=== PATIENT | male | born 1955 | race African-American/Black ===

== ENCOUNTER 2022-02-26 10:07 | Emergency (ER) | payer MEDICARE, OTHER, SELFPAY ==
[2022-02-26 10:56] VITALS: BP 136/78; PULSE 104; RESP 18; TEMP 37.4; O2SAT 100
--- NOTE | 2022-02-26 11:07 | ED.MALEGU ---
HPI - Male Genitourinary General Chief complaint: Urogenital-Male Stated complaint: lower abdomen pain,blood in urine Time Seen by Provider: 02/26/22 11:07 Source: patient Mode of arrival: ambulatory Limitations: no limitations History of Present Illness HPI Narrative: 66-year-old male presents with complaint of malodorous urine for several weeks. States that his told him his urine was smelling and that he needed to increase his water. Reports that 5 days ago he began to have dysuria, suprapubic pain. He went to the [facility] and had his urine checked and was told it was normal. States he checked his online profile today and noticed that antibiotic was called in for him. He was unaware that this antibiotic was prescribed. He states that it is coming from the [facility] and has not yet been mailed to him. Afebrile. No nausea vomiting diarrhea. All systems reviewed and negative except as noted above. Related Data Home Medications Medication Instructions Recorded Confirmed allopurinol 100 mg tablet 100 mg PO DAILY 02/26/22 02/26/22 aspirin 81 mg chewable tablet 81 mg PO DAILY 02/26/22 02/26/22 colchicine 0.6 mg tablet 0.6 mg PO DAILY 02/26/22 02/26/22 lisinopril 20 mg tablet 20 mg PO DAILY 02/26/22 02/26/22 meloxicam 7.5 mg tablet 7.5 mg PO DAILY 02/26/22 02/26/22 omeprazole 20 mg delayed 40 mg PO DAILY 02/26/22 02/26/22 release,disintegrating tablet sildenafil 100 mg tablet 100 mg PO DAILY PRN Errection 02/26/22 02/26/22 simvastatin 40 mg tablet 40 mg PO DAILY 02/26/22 02/26/22 tamsulosin 0.4 mg capsule 0.4 mg PO DAILY 02/26/22 02/26/22 Allergies Allergy/AdvReac Type Severity Reaction Status Date / Time No Known Allergies Allergy Verified 02/26/22 10:47 Review of Systems Review of Systems: CONSTITUTIONAL: Denies fever, chills, or sweats. EYES: Denies visual changes, redness, or discharge. ENT: Denies rhinorrhea, congestion, sore throat, or otalgia. CARDIOVASCULAR: Denies chest pain, palpitations, or edema. RESPIRATORY: Denies cough or dyspnea. GASTROINTESTINAL: Denies abdominal pain, nausea, vomiting, or diarrhea. GENITOURINARY: Reports dysuria, frequency. Denies hematuria. SKIN: Denies rash or itching. MUSCULOSKELETAL: Denies back pain, joint pain, or myalgia. NEUROLOGIC: Denies headache, numbness, or weakness. PSYCHIATRIC: Denies anxiety or depression. All other systems reviewed are negative, except as documented in HPI. PMFSH Comments At time of signature, agree with nursing past medical, surgical, social and family history. There is no relevant family history pertinent to the presenting complaint. Exam Narrative: GENERAL: This is a well-nourished, well-developed patient, in no apparent distress. HEAD: normocephalic, atraumatic. EYES: PERRL. Sclera clear/white. Vision is grossly intact. EARS: External ears normal NOSE: External nose normal NECK: Neck supple, non-tender without lymphadenopathy, masses or thyromegaly. CARDIOVASCULAR: Regular rate and rhythm without murmurs, gallops, or rubs. RESPIRATORY: Clear to auscultation. Breath sounds equal bilaterally. No wheezes, rales, or rhonchi. SKIN: warm, Dry, intact with no suspicious lesions or rash, good texture and turgor. NEURO: awake, alert, and oriented to person, place and time. There were no obvious focal neurologic abnormalities. EXTREMITIES: No joint tenderness, effusion, or edema noted. Course Course Level of Care: Express Care Visit Vital Signs Vital signs: Vital Signs Temperature 37.4 C 02/26/22 10:56 Pulse Rate 104 H 02/26/22 10:56 Respiratory Rate 18 02/26/22 10:56 Blood Pressure 136/78 02/26/22 10:56 Pulse Oximetry 100 02/26/22 10:56 Oxygen Delivery Room Air 02/26/22 10:56 Temperature 37.4 C 02/26/22 10:56 Pulse Rate 104 H 02/26/22 10:56 Respiratory Rate 18 02/26/22 10:56 Blood Pressure 136/78 02/26/22 10:56 Pulse Oximetry 100 02/26/22 10:56 Oxygen Delivery Room Air
[2022-02-26] MEDS: cefTRIAXone 1 GM, LIDOCAINE HCL 1% LOCAL INJ 2.1 ML IM (11:28)
== END 2022-02-26 11:44 | disposition home or self-care (01) ==
PROVIDERS: Emergency Provider Nurse Practitioner Family
DX: N39.0 Urinary tract infection, site not specified (principal); E78.00 Pure hypercholesterolemia, unspecified; I10 Essential (primary) hypertension; M10.9 Gout, unspecified
CPT/HCPCS: 81003; 87077; 87086; 87186; 96372; 99213; G0463; J0696